=== PATIENT | female | born 2000 | race Caucasian/White ===

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

== ENCOUNTER → 2020-04-08 | Outpatient (CLI) | payer MEDICARE, OTHER ==
--- NOTE | 2020-04-08 12:34 | XR ---
EXAMINATION TYPE: XR chest 2V DATE OF EXAM: 04/08/2020 COMPARISON: Chest x-ray May 07, 2018. HISTORY: Shortness of breath at rest. TECHNIQUE: Frontal and lateral views of the chest are obtained. FINDINGS: There is no focal air space opacity, pleural effusion, or pneumothorax seen. The cardiac silhouette size is within normal limits. The osseous structures are intact. IMPRESSION: No acute cardiopulmonary process. No significant change from prior.
== END | disposition home or self-care (01) ==
LOC: RADXRMAIN 11:22
PROVIDERS: ATTEND Family Medicine
DX: R06.00 Dyspnea, unspecified (principal)
CPT/HCPCS: 71046

== ENCOUNTER → 2021-05-15 | Outpatient (CLI) | payer MEDICARE ==
--- NOTE | 2021-05-26 14:34 | EM ---
EVENT MONITOR Patient was monitored between May 15 and 22 May 2021. The rhythm strip revealed sinus mechanism with episode of sinus tachycardia. There was no episodes of atrial fibrillation or ventricular ectopic activity. No pauses were noted. LLUVIA / WILLIAMN: [id number] / MTDD
== END | disposition home or self-care (01) ==
LOC: RADECHMAIN 12:43
PROVIDERS: ATTEND Family Medicine
DX: R00.2 Palpitations (principal)
CPT/HCPCS: 93270

== ENCOUNTER → 2021-08-18 | Day surgery (SDC) | payer MEDICARE ==
[2021-08-15 12:04] VITALS: BMI 29.1
[~2021-08-18] MED LIST: IV FLUID CONTINUATION 500 ML IV ONE; SODIUM CHLORIDE 0.9% 1,000 ML IV SCH
[2021-08-18 08:31] VITALS: BP 117/68; PULSE 92; RESP 16; TEMP 99.1
--- NOTE | 2021-08-18 17:03 | P.EPPROC ---
- EP Procedure Note Electrophysiology Procedure Note: Diagnosis Recurrent presyncope Twelve-lead EKG Sinus rhythm normal RI narrow QRS normal ST segments Tilt table test Baseline blood pressure 135/65 mmHg heart rate 91 beats a minute Patient was tilted upright at an angle of 70 per protocol There was an immediate increase in heart rate 131 beats a minute which then settled down to 120 beats a minute and remained between 110-120 beats a the procedure There was no change in her blood pressure When she is laid supine at the end of the procedure her blood pressure remained unchanged the heart rate went down to 98 beats a minute Impression normal twelve-lead EKG
== END ==
LOC: CATHEP 07:48
PROVIDERS: ATTEND Internal Medicine Clinical Cardiac Electrophysiology
DX: R55 Syncope and collapse (principal)
CPT/HCPCS: 81025; 87635; 93660

== ENCOUNTER 2021-09-30 17:22 | Emergency (ER) | payer MEDICARE ==
[2021-09-30 17:54] VITALS: TEMP 97.6
--- NOTE | 2021-09-30 21:07 | XR ---
EXAMINATION TYPE: XR chest 2V DATE OF EXAM: 09/30/2021 COMPARISON: NONE HISTORY: Chest pain TECHNIQUE: 2 views FINDINGS: Heart and mediastinum are normal. Lungs are clear. Diaphragm is normal. Bony thorax is inta ct. IMPRESSION: Normal chest.
--- NOTE | 2021-09-30 21:38 | ED ---
General Adult HPI - General Chief complaint: Dizziness Stated complaint: dizziness, left arm pain Time Seen by Provider: 09/30/21 19:39 Source: patient Mode of arrival: ambulatory Limitations: no limitations - History of Present Illness Initial comments: 21-year-old female patient presents the emergency department today for evaluation of left arm pain, dizziness, anxiety. Patient states that she has a diagnosis of tachycardia and started metoprolol on Wednesday for this. States she's developed some left upper arm pain which she describes as burning se nsation that then traveled to the left shoulder. States she became very anxious concerned she may be having a heart attack so she presented to the emergency department. States she did have a sharp pain to the left lateral chest a couple of days ago and did call an ambulance. She was checked out and did not want to be transported to the hospital at that time. He denies any shortness of breath or sweats with this. Denies any nausea or vomiting. Denies history of myocardial infarction. Patient denies any recent rash, fever, chills, cough, shortness of breath, diarrhea, constipation, back pain, numbness, tingling, hematuria, dysuria, urinary urgency, urinary frequency, headache, visual changes, or any other complaints. - Related Data Home Medications Medication Instructions Recorded Confirmed Omeprazole 20 mg PO Q48H 08/15/21 09/30/21 Metoprolol Succinate [Toprol XL] 25 mg PO DAILY@1500 09/30/21 09/30/21 Allergies Allergy/AdvReac Type Severity Reaction Status Date / Time amoxicillin Allergy Unknown Verified 09/30/21 20:29 Childhood Penicillins Allergy Unknown Verified 09/30/21 20:29 Childhood Review of Systems ROS Statement: Those systems with pertinent positive or pertinent negative responses have been documented in the HPI. ROS Other: All systems not noted in ROS Statement are negative. Past Medical History Past Medical History: GERD/Reflux Additional Past Medical History / Comment(s): See Dr Best's H&P,tachycardia,dizziness and SOB periodically History of Any Multi-Drug Resistant Organisms: None Reported Past Surgical History: No Surgical Hx Reported, Tonsillectomy Past Anesthesia/Blood Transfusion Reactions: Motion Sickness Past Psychological History: Anxiety Smoking Status: Current every day smoker - Past Family History Mother Family Medical History: Deep Vein Thrombosis (DVT) Additional Family Medical History / Comment(s): DVT post General Exam Limitations: no limitations General appearance: alert, in no apparent distress, other (This is a well- developed, well-nourished adult female patient in no acute distress.) Eye exam: Present: normal appearance, PERRL, EOMI. Absent: scleral icterus, conjunctival injection, periorbital swelling ENT exam: Present: normal exam, normal oropharynx, mucous membranes moist Respiratory exam: Present: normal lung sounds bilaterally. Absent: respiratory distress, wheezes, rales, rhonchi, stridor Cardiovascular Exam: Present: regular rate, normal rhythm, normal heart sounds. Absent: systolic murmur, diastolic murmur, rubs, gallop, clicks GI/Abdominal exam: Present: soft, normal bowel sounds. Absent: distended, tenderness, guarding, rebound, rigid Neurological exam: Present: alert, oriented X3, CN II-XII intact Psychiatric exam: Present: normal affect, normal mood Skin exam: Present: warm, dry, intact, normal color. Absent: rash Course Vital Signs 09/30/21 09/30/21 17:50 21:46 Temperature 97.6 F Pulse Rate 89 77 Respiratory 19 18 Rate Blood Pressure 119/71 119/69 O2 Sat by Pulse 97 96 Oximetry EKG Findings - EKG Comments: EKG Findings:: EKG obtained at 2133 shows normal sinus rhythm with a ventricular rate of 84, TX interval 120, QRS duration 92, QT 388, QTC 458. No evidence of ST elevation or depression. Medical Decision Making - Medical Decision Making 21-year-old female patient presented to the emergency department today for evaluation of left arm pain and increased anxiety related to this. Physical examination is unremarkable. Neurovascular status is intact. Lungs are clear to auscultation with good air movement. EKG showed normal sinus rhythm with no ST elevation or depression. Chest x-ray is negative. I did discuss findings and results with the patient were to discharge. Her primary care physician for recheck in 1-2 days. Return parameters were discussed in detail. She verbalizes understanding and agrees with this plan. My attending is Dr. Sheridan. - Lab Data Lab Results 09/30/21 Range/Units 20:59 Urine HCG, Qual Not Detected (Not Detectd) - Radiology Data Radiology results: report reviewed, image reviewed Two-view x-ray of the chest is obtained. Report was reviewed in its entirety. Impression by Dr. Montero shows normal chest. Disposition Clinical Impression: Left arm pain Disposition: HOME SELF-CARE Condition: Good Instructions (If sedation given, give patient instructions): Arm Pain (ED) Additional Instructions: Follow up with your primary care physician for recheck in 1-2 days. Return for any new, worsening, or concerning symptoms. Is patient prescribed a controlled substance at d/c from ED?: No Referrals: Duke Barrios DO [Primary Care Provider] - 1-2 days Time of Disposition: 21:44
[2021-09-30 21:47] VITALS: BP 119/69; PULSE 77; RESP 18
== END 2021-09-30 21:53 | disposition home or self-care (01) ==
LOC: EC 17:22
DX: M79.622 Pain in left upper arm (principal); K21.9 Gastro-esophageal reflux disease without esophagitis; F41.9 Anxiety disorder, unspecified; F17.200 Nicotine dependence, unspecified, uncomplicated; Z79.899 Other long term (current) drug therapy
CPT/HCPCS: 71046; 81025; 93005; 99284

== ENCOUNTER → 2023-08-05 | Outpatient (CLI) | payer OTHER ==
--- NOTE | 2023-08-05 16:10 | XR ---
EXAMINATION TYPE: XR abdomen 2V DATE OF EXAM: 08/05/2023 COMPARISON: NONE HISTORY: Abdominal pain TECHNIQUE: One view abdominal series FINDINGS: The osseous structures are intact. The bowel gas pattern is nonspecific. Osteitis pubis condensans. Tiny punctate calcification the pelvis may be related to vascular phleboliths.. IMPRESSION: 1. Nonspecific abdomen. No diagnostic evidence of obstruction.
[2023-08-05 20:02] LABS: ALT 67 U/L (8-44); AST 44 U/L (13-35); Albumin 4.3 d/dL (3.8-4.9); Albumin/Globulin Ratio 1.79 Ratio (1.60-3.17); Alkaline Phosphatase 106 U/L (41-126); Blood Urea Nitrogen 13.3 mg/dL (9.0-27.0); Calcium 9.7 mg/dL (8.7-10.3); Chloride 107 mmol/L (96-109); Globulin 2.4 d/dL (1.6-3.3); Glucose 85 mg/dL (70-110); Potassium 4.9 mmol/L (3.5-5.5); Sodium 139 mmol/L (135-145); Total Bilirubin <0.2 mg/dL (0.3-1.2); Total Protein 6.7 d/dL (6.2-8.2)
[2023-08-05 20:51] LABS: Basophils # (A) 0.08 X 10*3/uL (0.00-0.10); Basophils % (A) 0.6 %; Eosinophils # (A) 0.35 X 10*3/uL (0.04-0.35); Eosinophils % (A) 2.8 %; HCT 41.6 % (37.2-46.3); HGB 13.5 d/dL (12.0-15.0); Lymphocytes % (A) 20.9 %; MCHC 32.5 d/dL (32.0-37.0); MCV 89.5 FL (80.0-97.0); Mean Platelet Volume 11.3 FL (9.5-12.2); Monocytes # (A) 1.03 X 10*3/uL (0.20-1.00); Monocytes % (A) 8.3 %; NRBC Per 100 WBC 0 X 10*3/uL (0.00-0.01); Neutrophils # (A) 8.35 X 10*3/uL (1.80-7.70); Neutrophils % (A) 67.2 %; Platelet Count 300 X 10*3/uL (140-440); RBC 4.65 X 10*6/uL (4.10-5.20); RDW 12.5 % (11.5-14.5); WBC 12.44 X 10*3/uL (4.50-10.00)
== END | disposition home or self-care (01) ==
LOC: LABWHC1 14:50
PROVIDERS: ATTEND Physician Assistant
DX: R19.7 Diarrhea, unspecified (principal); R10.9 Unspecified abdominal pain
CPT/HCPCS: 36415; 74019; 80053; 85025